=== PATIENT | male | born 1935 | race Caucasian/White ===

== ENCOUNTER 2017-11-23 08:16 | Outpatient (CLI) | payer OTHER | END 2017-11-23 08:17 | disposition critical access hospital (66) | LOC: EMS 08:16 | PROVIDERS: ATTEND Surgery | DX: R55 Syncope and collapse (principal); R11.0 Nausea; R53.1 Weakness; R32 Unspecified urinary incontinence | CPT/HCPCS: A0425; A0427 ==

== ENCOUNTER 2017-11-23 08:58 | Emergency (ER) | payer OTHER ==
[2017-11-23] MEDS ORDERED: SODIUM CHLORIDE 0.9% 2,000 ML IV ONE (09:18)
--- NOTE | 2017-11-23 09:29 | ED Physician Documentation ---
History of Present Illness - Stated complaint Stated Complaint: SYNCOPE - Additonal information Additional information: hx from pt 82 male visiting locally for a retreat took his BP med quinapril for first time in a long while last night also recent cough and body aches this AM had a 30 sec syncopal episode no prodrome, no CP or palp or ALEXANDRE no injury, he was lowered to the ground per EMS he was orthostatic and became hypotensive en route though BP fine upon arrival here he denies abd pain NVD urinary sx bloody black BM Review of Systems Constitutional: reports: Myalgias. denies: Fever, Chills Cardiac: denies: Chest pain / pressure, Palpitations Respiratory: reports: Cough. denies: Dyspnea GI: denies: Abdominal Pain, Nausea, Vomiting, Diarrhea : denies: Dysuria Endocrine: denies: Easy bruising / bleeding Immunocompromised: denies: Immunocompromised PD PAST MEDICAL HISTORY - Present Medications Home Medications: Ambulatory Orders Medication Instructions Recorded Confirmed Oseltamivir [Tamiflu] 75 mg PO BID #9 capsule 11/23/17 Quinapril HCl 11/23/17 - Allergies Allergies/Adverse Reactions: Allergies Allergy/AdvReac Type Severity Reaction Status Date / Time No Known Drug Allergies Allergy Verified 11/23/17 09:28 PD ED PE NORMAL - Vitals Vital signs reviewed: Yes - General General: Alert and oriented X 3 - HEENT HEENT: Atraumatic, PERRL, Other (not pale) - Neck Neck: Supple, no meningeal sign - Cardiac Cardiac: RRR - Respiratory Respiratory: No respiratory distress, Clear bilaterally - Abdomen Abdomen: Soft, Non tender - Derm Derm: Normal color - Extremities Extremities: No deformity, No tenderness to palpate - Neuro Neuro: Alert and oriented X 3, brake lining maker 2-12 intact, No motor deficit, No sensory deficit, Normal speech Results - Vitals Vitals: Vital Signs - 24 hr 11/23/17 11/23/17 11/23/17 09:19 09:32 09:35 Temperature 36.6 C Heart Rate 58 L Respiratory 20 Rate Blood Pressure 112/73 Blood Pressure 112/73 [Left] Blood Pressure 106/64 [Right] O2 Saturation 96 11/23/17 11/23/17 11/23/17 11:51 12:13 13:53 Temperature 36.6 C Heart Rate 71 64 64 Respiratory 18 27 H 16 Rate Blood Pressure 112/69 110/71 Blood Pressure [Left] Blood Pressure [Right] O2 Saturation 95 99 100 Oxygen O2 Source Room air - EKG (time done) 0909 Rate: Rate (enter#) (70) Rhythm: NSR [place]: LAD Ischemia: Normal ST segments - Labs Labs: Laboratory Tests 11/23/17 11/23/17 11/23/17 09:40 09:40 09:40 WBC 6.8 RBC 4.62 L Hgb 14.9 Hct 43.1 MCV 93.4 MCH 32.2 H MCHC 34.5 RDW 13.3 Plt Count 146 MPV 7.8 Neut # 5.6 Lymph # 0.5 L [place] # 0.6 Eos # 0.0 Baso # 0.1 Absolute Nucleated RBC 0.01 Nucleated RBC % 0.1 Sodium 138 Potassium 3.7 Chloride 103 Carbon Dioxide 23 Anion Gap 12.0 BUN 24 H Creatinine 1.0 Estimated GFR (MDRD) 72 L Glucose 135 H Lactic Acid 0.9 Calcium 9.0 Total Bilirubin 0.7 AST 22 ALT 18 Alkaline Phosphatase 43 Total Protein 7.0 Albumin 3.8 Globulin 3.2 Albumin/Globulin Ratio 1.2 Lipase 40 Urine Color Urine Clarity Urine pH Ur Specific [place] Urine Protein Urine Glucose (UA) Urine Ketones Urine Occult Blood Urine Nitrite Urine Bilirubin Urine Urobilinogen Ur Leukocyte Esterase Ur Microscopic Review Urine Culture Comments Influenza A (Rapid) Influenza B (Rapid) Influenza Types A,B Ag 11/23/17 11/23/17 11:30 13:05 WBC RBC Hgb Hct MCV MCH MCHC RDW Plt Count MPV Neut # Lymph # [place] # Eos # Baso # Absolute Nucleated RBC Nucleated RBC % Sodium Potassium Chloride Carbon Dioxide Anion Gap BUN Creatinine Estimated GFR (MDRD) Glucose Lactic Acid Calcium Total Bilirubin AST ALT Alkaline Phosphatase Total Protein Albumin Globulin Albumin/Globulin Ratio Lipase Urine Color YELLOW Urine Clarity CLEAR Urine pH 6.0 Ur Specific [place] >=1.030 H Urine Protein TRACE Urine Glucose (UA) NEGATIVE Urine Ketones TRACE Urine Occult Blood NEGATIVE Urine Nitrite NEGATIVE Urine Bilirubin NEGATIVE Urine Urobilinogen 0.2 (NORMAL) Ur Leukocyte Esterase NEGATIVE Ur Microscopic Review NOT INDICATED Urine Culture Comments NOT INDICATED Influenza A (Rapid) POSITIVE H Influenza B (Rapid) Negative Influenza Types A,B Ag + H - Rads (name of study) CXR Radiology: See rad report (no acute) PD MEDICAL DECISION MAKING - ED course ED course: fairly healthy 82 y/o male with cough and maylagias for three days who had a brief syncopal episode today assoc with some transient low BP who is found in work up to be dehydrated and have influenza A he is feeling better after IVF and is able to ambulate independently and has good social support at home and is eager to get out of the hospital so will dc given age age and sx shown today feel pt merits tamiflu Departure - Departure Disposition: 01 Home, Self Care Clinical Impression: Influenza A, Dehydration Syncope Qualifiers: Syncope type: unspecified Qualified Code(s): R55 - Syncope and collapse Condition: Good Instructions: ED Flu Prescriptions: Oseltamivir [Tamiflu] 75 mg PO BID #9 capsule Comments: Your labs were fine except for the positive influenza test and dehydration Your chest xray did not show any acute problem but there may be a nodule in the lung base and the radiologist today recommedns you get a CT scan for further evaluation - your PMD can arrange this Since you are feeling better after IV fluids and have good support at home I think it is safe for you to go home Take the tamiflu medication as prescribed Rest Drink plenty of fluids Tylenol as needed for fever or body aches Do not take you blood pressure medication Follow up with your PMD for a recheck this week Return to the ER if worse as we discussed Discharge Date/Time: 11/23/17 14:30
[2017-11-23 09:53] LABS: BASOPHILS # (AUTO) 0.1 10^3/uL (0.0-0.1); BASOPHILS % (AUTO) 1.8 %; EOSINOPHILS % (AUTO) 0.1 %; HGB - HEMOGLOBIN 14.9 g/dL (14.0-18.0); LYMPHOCYTES # (AUTO) 0.5 10^3/uL (1.5-3.5); MEAN CORPUSCULAR HEMOGLOBIN 32.2 pg (27.0-31.0); MEAN CORPUSCULAR HGB CONC 34.5 g/dL (32.0-36.0); MEAN CORPUSCULAR VOLUME 93.4 fL (80.0-94.0); MEAN PLATELET VOLUME 7.8 fL (7.4-11.4); MONOCYTES # (AUTO) 0.6 10^3/uL (0.0-1.0); MONOCYTES % (AUTO) 8.3 %; NEUTROPHILS # (AUTO) 5.6 10^3/uL (1.5-6.6); NEUTROPHILS % (AUTO) 82.8 %; PLT - PLATELET COUNT 146 10^3/uL (130-450); RED BLOOD COUNT 4.62 10^6/uL (4.70-6.10); RED CELL DISTRIBUTION WIDTH 13.3 % (12.0-15.0); WHITE BLOOD COUNT 6.8 x10^3/uL (4.8-10.8)
[2017-11-23 10:00] LABS: ALBUMIN 3.8 g/dL (3.2-5.5); ALBUMIN/GLOBULIN RATIO 1.2 (1.0-2.2); BILIRUBIN,TOTAL 0.7 mg/dL (0.2-1.0)
--- NOTE | 2017-11-23 10:50 | XRAY Report ---
EXAM: CHEST RADIOGRAPHY EXAM DATE: 11/23/2017 10:23 AM. CLINICAL HISTORY: Syncope hypotension. COMPARISON: None. TECHNIQUE: 2 views. FINDINGS: Lungs/Pleura: No focal consolidation. There appear to be two small partially calcified nodules in the left lung base. No pneumothorax or pleural effusion. Borderline hyperinflation. Mediastinum: Heart and mediastinal contours are unremarkable. Moderate hiatal hernia. Other: None. IMPRESSION: 1. No radiographically apparent acute abnormality in the chest. 2. Possible partially calcified nodules in the left lung base. Nonemergent CT is recommended for furt her evaluation if clinically indicated. [facility] Referring Provider Line: [phone] SITE ID: [id number]
--- NOTE | 2017-11-23 10:50 | XRAY Preliminary Report ---
Exam: XR CHEST 2 VIEW PA/LAT IMPRESSION: 1. No radiographically apparent acute abnormality in the chest. 2. Possible partially calcified nodules in the left lung base. Nonemergent CT is recommended for furt her evaluation if clinically indicated. [facility] SITE ID: [id number]
[2017-11-23 13:13] LABS: BILIRUBIN,URINE NEGATIVE (NEGATIVE); GLUCOSE, URINE (UA) NEGATIVE (NEGATIVE); KETONES,URINE (UA) TRACE mg/dL (NEGATIVE); LEUKOCYTE ESTERASE, URINE NEGATIVE (NEGATIVE); NITRITE,URINE NEGATIVE (NEGATIVE); OCCULT BLOOD,URINE NEGATIVE (NEGATIVE); PROTEIN,URINE TRACE mg/dL (NEGATIVE); UROBILINOGEN,URINE 0.2 (NORMAL) E.U./dL (NORMAL)
[2017-11-23 13:14] LABS: CLARITY,URINE CLEAR (CLEAR)
[2017-11-23] MEDS ORDERED: OSELTAMIVIR 75 MG CAPSULE PO STA (13:43)
[2017-11-23 13:54] VITALS: BP 110/71
== END 2017-11-23 14:30 | disposition home or self-care (01) ==
LOC: ED 08:58
DX: J09.X2 Influenza due to identified novel influenza A virus with other respiratory manifestations (principal); E86.0 Dehydration; R55 Syncope and collapse; I10 Essential (primary) hypertension
CPT/HCPCS: 36415; 71020; 80053; 81003; 83605; 83690; 85025; 87040; 87275; 87276; 93005; 96360; 96361; 99284; A9270; 81001; 87086